=== PATIENT | female | born 1960 | race Caucasian/White ===

== ENCOUNTER 2024-01-04 08:11 | Emergency (ER) | payer OTHER, SELFPAY ==
--- NOTE | ~2024-01-04 | XR_ITS ---
XR finger 1st LT min 2V Ordering provider: Sharona Danielle APRN History: . fall, pain to 3rd and 4th finger on rt hand and left thumb . Comparison: None. FINDINGS: BONES: No acute fracture or dislocation. JOINT SPACES: Normal. SOFT TISSUES: Normal. IMPRESSION: No acute osseous abnormality. Reviewed, dictated and finalized at location A.
--- NOTE | ~2024-01-04 | XR_ITS ---
XR hand RT min 3V Ordering provider: Sharona Danielle APRN History: . fall, pain to 3rd and 4th finger on rt hand and left thumb . Comparison: January 28, 2018 FINDINGS: BONES: No acute fracture or dislocation. JOINT SPACES: Narrowing of the proximal and distal interphalangeal joints suggestive of osteoarthriti c changes. SOFT TISSUES: Normal. IMPRESSION: No acute osseous abnormality right hand. Reviewed, dictated and finalized at location A.
[2024-01-04 08:25] VITALS: BP 154/78; PULSE 80; RESP 16; TEMP 36.6; O2SAT 99
--- NOTE | 2024-01-04 08:27 | ED.UPPEXIN ---
HPI - Extremity Injury (Upper) General Chief Complaint: Extremity Injury, Upper Stated Complaint: left thumb,middle/ring finger right hand injury Time Seen by Provider: 01/04/24 08:27 Source: patient, RN notes reviewed and old records reviewed Mode of arrival: ambulatory Limitations: no limitations History of Present Illness HPI narrative: Patient presents with complaints of pain and swelling to right 3rd and 4th fingers, left thumb. Reports that she slipped yesterday, fell forward and caught herself on outstretched hands. She denies other injury and trauma. She retains full range of motion to the affected digits. She has been taking Advil for her pain with good relief. She voices no other concerns or complaints at this time. Related Data Home Medications Medication Instructions Recorded Confirmed fluticasone fur. 100 mcg-umeclid 1 inh inhalation DIRECTED 01/04/24 01/04/24 62.5 mcg-vilant 25 mcg inhalat.powder (Trelegy Ellipta) Allergies Allergy/AdvReac Type Severity Reaction Status Date / Time sulfamethoxazole Allergy Intermediate Hives Verified 01/04/24 08:31 trimethoprim Allergy Intermediate Hives Verified 01/04/24 08:31 poison loulou extract Allergy Mild Rash Verified 01/04/24 08:31 Review of Systems Review of Systems: All systems reviewed & are unremarkable except as noted in HPI and below Constitutional: Constitutional: Reports as per HPI and Reports no additional constitutional complaints ENT: Reports system reviewed and no additional complaints, except as documented Cardiovascular: Cardiovascular: Reports no additional cardiovascular complaints Respiratory: Respiratory: Reports no additional respiratory complaints Gastrointestinal: Gastrointestinal: Reports no additional gastrointestinal complaints Musculoskeletal: Musculoskeletal: Reports no additional musculoskeletal complaints and Reports as per HPI Exam Const: General: cooperative, no acute distress, alert and awake Orientation/consciousness: oriented to person, oriented to place and oriented to time HENMT: Head: normal to inspection Resp: Effort & Inspection: normal respiratory effort and able to speak in complete sentences Auscultation: clear to auscultation bilaterally, no crackles, no rales, no rhonchi and no wheezes Cardio: Palpation: normal PMI Rate: regular rate Rhythm: regular rhythm Heart sounds: S1 normal heart sound present and S2 normal heart sound present Neuro: General: oriented to person, oriented to place and oriented to time Cranial nerves: Yes CN's II-XII intact bilaterally Extrem: Right upper extremity: full ROM, normal capillary refill and Extremity exam: right hand normal capillary refill, neuromotor exam abnormal, tenderness of the 3rd digit at the PIP joint and of the 4th digit at the PIP joint and normal ROM of fingers Left upper extremity: full ROM and hand normal capillary refill, neuromotor exam normal and tenderness of the thumb at the proximal phalanx Psych: Appearance: grossly normal Thought process: Normal thought process present Insight: Good insight present (Psych) Judgement: Good judgement present (Psych) Course Course Level of Care: Express Care Visit MDM - Extremity Injury (Upper) MDM Narrative Medical decision making narrative: Patient with tenderness and mild swelling to right 3rd and 4th fingers, left thumb. Status post fall yesterday. Managing well with [id number] medication. Full range of motion. Negative x-rays. Elevated blood pressure noted and discussed with patient. She agrees to follow-up with her primary care provider. Emergency department for new or worse symptoms. Discharge instructions reviewed with patient, as well as provided in writing per nursing staff. The instructions also include specific and strict return/GO TO THE ER as well as f/u information. All questions have been answered, and the patient deny any further questions with discharge and discharge plan. Denis
[2024-01-04 08:32] VITALS: BP 154/78; PULSE 80; RESP 16; TEMP 36.6; O2SAT 99
== END 2024-01-04 09:09 | disposition home or self-care (01) ==
PROVIDERS: Emergency Provider Nurse Practitioner Family
DX: R03.0 Elevated blood-pressure reading, without diagnosis of hypertension (principal); M79.644 Pain in right finger(s); M79.645 Pain in left finger(s); W01.0XXA Fall on same level from slipping, tripping and stumbling without subsequent striking against object, initial encounter
CPT/HCPCS: 73130; 73140; 99213; G0463